=== PATIENT | male | born 1985 | race Caucasian/White ===

== ENCOUNTER 2016-06-11 12:08 | Emergency (ER) | payer OTHER ==
[~2016-06-11] VITALS: Ht 180.3 cm; Wt 86.2 kg
[2016-06-11 12:17] VITALS: BP 134/71
--- NOTE | 2016-06-11 12:21 | NUR ---
PATIENT AMBULATED TO BED 2.
--- NOTE | 2016-06-11 12:34 | NUR ---
PATIENT PRESENTS TO ED WITH C/O LEFT 5TH FINGER PUS . PT STATES IT STARTED YESTERDAY AND IT COMES AND GO . DENIES N/V/D; SKIN IS PINK/WARM/DRY; AAOX4 WITH EVEN AND STEADY GAIT; LUNGS CLEAR BL; HR EVEN AND REGULAR; PT DENIES ANY FEVER, CP, SOB, OR COUGH AT THIS TIME; PATIENT STATES PAIN OF 5/0 AT THIS TIME; VSS; PATIENT POSITIONED FOR COMFORT; HOB ELEVATED; BEDRAILS UP X2; BED DOWN. ER MD MADE AWARE OF PT STATUS.
--- NOTE | 2016-06-11 12:52 | NUR ---
Patient being evaluated by physician at bedside.
[2016-06-11] MEDS ORDERED: LIDOCAINE 1% 500 MG/50 ML VIAL INJ ONE (12:55)
[2016-06-11 13:49] VITALS: BP 134/71
== END 2016-06-11 13:50 | disposition home or self-care (01) ==
LOC: MED 12:08
DX: L03.012 Cellulitis of left finger (principal); R03.0 Elevated blood-pressure reading, without diagnosis of hypertension
CPT/HCPCS: 10060; 90471; 90715; 99283; J2001

== ENCOUNTER 2018-09-16 14:08 | Emergency (ER) | payer OTHER ==
[~2018-09-16] VITALS: Ht 180.3 cm; Wt 125.6 kg
--- NOTE | 2018-09-16 14:18 | NUR ---
PT TO ER BED 6
[2018-09-16 14:21] VITALS: BP 131/87
[2018-09-16] MEDS ORDERED: NACL 0.9% 1,000 ML IV ONE (14:21)
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
[2018-09-16] MEDS ORDERED: MULT-1993 PO (14:34)
[2018-09-16] MEDS ORDERED: ARIP5TAB8 PO (14:34)
[2018-09-16] MEDS ORDERED: METH500T14 PO (14:34)
[2018-09-16] MEDS ORDERED: NAPR-54 PO (14:34)
[2018-09-16] MEDS ORDERED: DIVA250T PO (14:34)
[2018-09-16] MEDS ORDERED: SERT100T PO (14:34)
--- NOTE | 2018-09-16 14:36 | NUR ---
senior technical support analyst at bedside.
[2018-09-16 14:50] LABS: BASOPHILS # (AUTO) 0.1 K/uL (0.00-0.22); BASOPHILS % (AUTO) 0.8 % (0.0-2.0); EOSINOPHILS # (AUTO) 0.2 K/uL (0-0.4); EOSINOPHILS % (AUTO) 2.4 % (0.0-4.0); HEMATOCRIT 43.5 % (36-52); HEMOGLOBIN 14.7 g/dL (12.0-18.0); LYMPHOCYTES # (AUTO) 2.7 K/uL (2.0-11.5); LYMPHOCYTES % (AUTO) 33.9 % (20.5-51.1); MEAN CORPUSCULAR HEMOGLOBIN 31 pg (27-31); MEAN CORPUSCULAR HGB CONC 34 g/dL (33-37); MEAN CORPUSCULAR VOLUME 91.8 fL (80-94); MONOCYTES # (AUTO) 0.6 K/uL (0.8-1.0); MONOCYTES % (AUTO) 7.6 % (1.7-9.3); NEUTROPHILS # (AUTO) 4.4 K/uL (1.8-7.7); NEUTROPHILS % (AUTO) 55.3 % (42.2-75.2); PLATELET COUNT (AUTO) 295 K/uL (140-450); RED BLOOD CELL COUNT(AUTO) 4.74 MIL/uL (4.20-6.10); RED CELL DISTRIBUTION WIDTH 13.3 % (11.6-13.7)
[2018-09-16 15:05] LABS: BARBITURATE, URINE NEG. ng/ml (NEG <=200); BENZODIAZEPINE, URINE NEG. ng/mL (NEG <=200); CANNABINOID, URINE NEG. ng/mL (NEG <=50); COCAINE, URINE NEG. ng/mL (NEG <=300); OPIATE, URINE NEG. ng/mL (NEG <=2000); PHENCYCLIDINE SCREEN,URINE NEG. ng/mL (NEG <=25)
[2018-09-16 15:07] LABS: APPEARANCE,URINE CLEAR (CLEAR); BILIRUBIN,URINE NEGATIVE (NEGATIVE); BLOOD, URINE TRACE-I (NEGATIVE); COLOR,URINE YELLOW (YELLOW); LEUKOCYTE ESTERASE ,URINE NEGATIVE (NEGATIVE); NITRITE, URINE NEGATIVE (NEGATIVE); UGLUCOSE NEGATIVE (NEGATIVE)
[2018-09-16 15:10] LABS: ANION GAP 14.7 (8-16); CARBON DIOXIDE 23.8 mmol/L (21-32); CHLORIDE 103 mmol/L (98-107); CREATININE 0.9 mg/dL (0.7-1.3); GFR ARICAN-AMERICAN 125 mL/min (>90); GLUCOSE 118 mg/dL (74-106); POTASSIUM 3.5 mmol/L (3.5-5.1); SODIUM SERUM 138 mmol/L (136-145); UREA NITROGEN, BLOOD 10 mg/dL (7-18)
[2018-09-16 15:19] LABS: ASPARTATE AMINOTRANSFERASE 17 U/L (15-37); TOTAL BILIRUBIN 0.6 mg/dL (0.0-1.0)
[2018-09-16 15:32] LABS: RBC,URINE NONE SEEN /HPF (0-5); WBC,URINE NONE SEEN /HPF (0-5)
--- NOTE | 2018-09-16 15:41 | NUR ---
Telepsychiatry consultation ordered as requested by Dr. Hernandez.
--- NOTE | 2018-09-16 17:52 | NUR ---
[place] [employer] evaluating patient at bedside.
--- NOTE | 2018-09-16 19:15 | NUR ---
Report given to ORI Roman
--- NOTE | 2018-09-16 19:16 | NUR ---
RECEIVED REPORT FROM ORI GOINS.
--- NOTE | 2018-09-16 19:30 | NUR ---
PT IS AWAKE, CALM AND RESTING AT THIS TIME. PT DENIES PAIN. VSS. BREATHING EVEN, UNLABORED. NO DISTRESS, DISCOMFORT REPORTED. EMT IS SITTING AT BEDSIDE. FOOD HAS BEEN ORDERED.
--- NOTE | 2018-09-16 19:47 | NUR ---
Call Center has received patients 5150 and packet. Will assist with psych bed placement at contracted psych facilities.
--- NOTE | 2018-09-16 20:12 | NUR ---
Called the following contracted psych facilities for bed placement. [facility], spoke with Diane. No beds available tonight. [facility], spoke with Paige. No bed vacancies in the unit tonight. [facility], spoke with Niurka. Possible bed available for patient, packet was faxed over for review per request. Pending call back.
--- NOTE | 2018-09-16 20:30 | NUR ---
PT IS EATING DINNER. CALM, COMFORTABLE. DENIES PAIN, DISTRESS, DISCOMFORT. BREATHING EVEN, UNLABORED. FLUIDS ARE RUNNING AT 100 ML/HR. EMT IS SITTING AT BEDSIDE.
--- NOTE | 2018-09-16 21:30 | NUR ---
PT IS AWAKE, RESTING COMFORTABLY. DENIES PAIN, DISTRESS, DISCOMFORT. BREATHING EVEN, UNLABORED. VSS.
--- NOTE | 2018-09-16 21:33 | NUR ---
Follow up call was made to [facility], spoke with Rosio with intake. Unfortunately they can not accommodate the patient at this time but they will hold on to the patients packet for tomorrow pending discharges. Call Center will continue to call contracted psych facilities for bed placement.
--- NOTE | 2018-09-16 21:40 | NUR ---
Called [facility] and spoke with Yuliana. The can not accommodate any outside transfers due to having many admissions in the ED. Yuliana requested for us to try again tomorrow late morning for pending discharges. Called [facility] and spoke with intake, no beds available tonight. Packet was faxed. Called [facility], spoke with Yuliana. No beds available tonight. Will continue to call for bed placement. Call Center will update the ED if a bed becomes available during this shift.
--- NOTE | 2018-09-16 22:30 | NUR ---
PT IS SLEEPING. NO PAIN, DISTRESS, DISCOMFORT AT THIS TIME. VSS. EMT SITTING AT BEDSIDE. PIV SITE IS PATENT, CLEAN, DRY, NO REDNESS.
--- NOTE | 2018-09-16 23:06 | NUR ---
REPORT GIVEN TO ORI GRANADOS AT [facility] FOR TRANSFER.
--- NOTE | 2018-09-16 23:30 | NUR ---
Patient to be transferred to [facility]. Is being transferred due to 5150 hold. Receiving facility has accepting physician, Dr. Tovar and available space. ER physician has signed transfer form. Patient or responsible green party has agreed to transfer and signed form. Copy of nursing notes, lab reports, EKG, Physicians Orders and X-rays to be sent with patient. Report called to ORI Valdez at receiving facility. [facility] ambulance service has been called for transfer. ETA is 30 mins.
--- NOTE | 2018-09-17 00:13 | NUR ---
[facility] TRANSPORT AT BEDSIDE
[2018-09-17 00:23] VITALS: BP 108/58
--- NOTE | 2018-09-17 00:23 | NUR ---
Patient discharged with v/s stable. Written and verbal after care instructions given and explained. Patient verbalized understanding. [facility] BLS Transport to [facility]. Report given to EMT. VSS. Pt is awake, alert, calm, cooperative. Denies pain, distress, discomfort. IV removed, catheter intact and site benign. Applied folded 4x4 gauze and tape to stop bleeding.
--- NOTE | 2018-09-17 00:23 | NUR ---
PT TAKEN BY [facility] TRANSPORT TO [facility] UN[address]
== END 2018-09-17 00:23 | disposition designated cancer center or children's hospital (05) ==
LOC: MED 14:08
DX: R45.851 Suicidal ideations (principal); F32.9 Major depressive disorder, single episode, unspecified; F10.231 Alcohol dependence with withdrawal delirium; R45.850 Homicidal ideations; Z04.6 Encounter for general psychiatric examination, requested by authority; Z79.899 Other long term (current) drug therapy
CPT/HCPCS: 36415; 71045; 80053; 80305; 81001; 84484; 85025; 93005; 99285; G0482; J7030; Q0092

== ENCOUNTER 2020-12-08 19:19 | Emergency (ER) | payer OTHER ==
[~2020-12-08] VITALS: Ht 180.3 cm; Wt 117.5 kg
[~2020-12-08 19:19] MED LIST: ARIP5TAB8 PO; DIVA250T PO; METH-1681 PO; MULT-1993 PO; NAPR-54 PO; SERT100T PO
[2020-12-08 19:27] VITALS: BP 139/84
--- NOTE | 2020-12-08 19:35 | NUR ---
TO LOBBY FOLLOWING TRIAGE
[2020-12-08] MEDS ORDERED: TERB125S TP (21:11)
[2020-12-08] MEDS ORDERED: DIPH25SG5 PO (21:11)
--- NOTE | 2020-12-08 22:00 | NUR ---
Patient discharged with v/s stable. Written and verbal after care instructions given and explained. Patient alert, oriented and verbalized understanding of instructions. Ambulatory with steady gait. All questions addressed prior to discharge. ID band removed. Patient advised to follow up with PMD. Rx of BENADRYL AND LAMISIL given. Patient educated on indication of medication including possible reaction and side effects. Opportunity to ask questions provided and answered.
== END 2020-12-08 22:00 | disposition home or self-care (01) ==
LOC: MED 19:19
DX: B35.1 Tinea unguium (principal); G47.9 Sleep disorder, unspecified
CPT/HCPCS: 99283

== ENCOUNTER 2021-12-25 15:25 | Emergency (ER) | payer OTHER ==
[~2021-12-25] VITALS: Ht 180.3 cm; Wt 111.6 kg
[~2021-12-25 15:25] MED LIST changes: +DIPH25SG5 PO; +TERB125S TP
[2021-12-25 15:44] VITALS: BP 119/58
--- NOTE | 2021-12-25 15:51 | NUR ---
DARIANA CORDON AT PT SIDE FOR EVAL WITH CRYPTANALYST
--- NOTE | 2021-12-25 16:14 | NUR ---
36 Y/O MALE BIB SELF C/O RASH ON THE GENITALS, RADIATING FROM THE PENIS UNTIL THE SCROTUM X2 MONTHS. DENIES ANY DISCHARGE, PAIN. STATES THAT IT "REALLY JUST FEELS ITCHY", DENIES ANY ACTIVE SEXUAL PARTNERS NKA PMH: HIV+
[2021-12-25] MEDS ORDERED: CICL0.777 TP (16:16)
--- NOTE | 2021-12-25 16:52 | NUR ---
Patient discharged with v/s stable. Written and verbal after care instructions given and explained. Patient alert, oriented and verbalized understanding of instructions. Ambulatory with steady gait. All questions addressed prior to discharge. ID band removed. Patient advised to follow up with PMD. Rx of CICLOPIROXIN given. Patient educated on indication of medication including possible reaction and side effects. Opportunity to ask questions provided and answered.
== END 2021-12-25 16:52 | disposition home or self-care (01) ==
LOC: MED 15:25
DX: R21 Rash and other nonspecific skin eruption (principal); Z79.899 Other long term (current) drug therapy
CPT/HCPCS: 99283